=== PATIENT | female | born 1965 | race African-American/Black ===

== ENCOUNTER 2016-04-26 16:20 | Emergency (ER) | payer BC, OTHER ==
--- NOTE | 2016-04-26 16:40 | ER Document Report ---
ED Medical Screen (RME) - General Chief Complaint: Arm Pain Stated Complaint: RIGHT ARMPIT/BREAST PAIN Mode of Arrival: Ambulatory Information source: Patient Notes: Patient complains of pain under right axilla and to right lateral breast area. No history of breast cancer. No fever. He should also reports some blood in her stool that occurred 3-4 weeks ago and has been a day since then. Patient does report a history of hemorrhoids. hx: Diverticulosis I have greeted and performed a rapid initial assessment of this patient. A comprehensive ED assessment and evaluation of the patient, analysis of test results and completion of the medical decision making process will be conducted by additional ED providers. Physical Exam - Vital signs Vitals: Temp Pulse Resp BP Pulse Ox 98.0 F 70 16 166/93 H 98 04/26/16 16:27 04/26/16 16:27 04/26/16 16:27 04/26/16 16:27 04/26/16 16:27 - General General appearance: Appears well, Alert In distress: None Course - Vital Signs Vital signs: Temp Pulse Resp BP Pulse Ox 98.0 F 70 16 166/93 H 98 04/26/16 16:27 04/26/16 16:27 04/26/16 16:27 04/26/16 16:27 04/26/16 16:27
[2016-04-26 17:40] LABS: ABSOLUTE BASOPHILS # (AUTO) 0.1 10^3/uL (0.0-0.2); ABSOLUTE EOSINOPHILS # (AUTO) 0.1 10^3/uL (0.0-0.6); ABSOLUTE LYMPHOCYTES (AUTO) 2.1 10^3/uL (0.5-4.7); ABSOLUTE MONOCYTES (AUTO) 0.2 10^3/uL (0.1-1.4); BASOPHILS % (AUTO) 0.9 % (0-2); EOSINOPHILS % (AUTO) 2.5 % (0-6); HEMATOCRIT 37.1 % (36.0-47.0); HEMOGLOBIN 12.5 g/dL (12.0-15.5); HGB HCT DIFFERENCE 0.4; LYMPHOCYTES % (AUTO) 37.5 % (13-45); MEAN CORPUSCULAR HEMOGLOBIN 29.3 pg (27.0-33.4); MEAN CORPUSCULAR HGB CONC 33.8 g/dL (32.0-36.0); MEAN CORPUSCULAR VOLUME 87 fl (80-97); MONOCYTES % (AUTO) 4.1 % (3-13); RED BLOOD COUNT 4.27 10^6/uL (3.72-5.28); RED CELL DISTRIBUTION WIDTH 12.7 % (11.5-14.0); WHITE BLOOD COUNT 5.5 10^3/uL (4.0-10.5)
[2016-04-26 17:45] LABS: PROTHROMBIN TIME 12.1 SEC (11.4-15.4)
[2016-04-26 17:46] LABS: PARTIAL THROMBOPLASTIN TIME 26.5 SEC (23.5-35.8)
[2016-04-26 18:00] LABS: ALANINE AMINOTRANSFERASE 32 U/L (9-52); ALBUMIN 4.8 g/dL (3.5-5.0); ALKALINE PHOSPHATASE 63 U/L (38-126); ANION GAP 10 (5-19); ASPARTATE AMINO TRANSFERASE 27 U/L (14-36); BILIRUBIN,TOTAL 0.8 mg/dL (0.2-1.3); BLOOD UREA NITROGEN 22 mg/dL (7-20); CALCIUM 9.9 mg/dL (8.4-10.2); CARBON DIOXIDE 29 mmol/L (22-30); CHLORIDE 100 mmol/L (98-107); CREATININE RESULT 0.85 mg/dL (0.52-1.25); GLUCOSE 86 mg/dL (75-110); POTASSIUM 4.1 mmol/L (3.6-5.0); SODIUM 139.1 mmol/L (137-145)
--- NOTE | 2016-04-26 20:27 | ER Document Report ---
HPI - HPI Patient complains to provider of: right axilla swelling and pain Pain Level: 4 Context: Patient is a 51-year-old female presents emergency Department complaining of right axilla swelling, tingling, itching and burning for the past 4-5 days. Patient states that she has had swelling on and off in this area before but never with itching or pain. Patient denies ever having shingles. Patient also complaining of bright red blood per rectum after she has to strain for bowel movements. Patient states that she has a history of constipation and typically has to take [id number] laxatives or milk of magnesia to have a bowel movement. She denies taking a stool softener otherwise she denies any lethargy , dizziness or any other abnormal bleeding. She states it is only occasionally during the week. Otherwise she past medical history significant for external and internal hemorrhoids, diverticulosis and history of colon polyps and a previous breast reduction. - CONSTITUTIONAL Constitutional: DENIES: Fever, Chills - EENT EENT: DENIES: Sore Throat, Ear Pain, Nasal Drainage-Clear, Nasal Drainage- Purulent, Congestion, Eye problems - NEURO Neurology: DENIES: Headache, Weakness, Vision blurred, Dizzinesss / Vertigo - CARDIOVASCULAR Cardiovascular: DENIES: Chest pain - RESPIRATORY Respiratory: DENIES: Trouble Breathing, Coughing - GASTROINTESTINAL Gastrointestinal: DENIES: Abdominal Pain, Nausea, Patient vomiting, Diarrhea, Constipation, Black / Bloody Stools - URINARY Urinary: DENIES: Dysuria, Urgency, Frequency - REPRODUCTIVE Reproductive: DENIES: : - MUSCULOSKELETAL Musculoskeletal: REPORTS: Extremity pain - bilateral underarms. DENIES: Back Pain, Neck Pain, Swelling - DERM Skin Color: Normal, [place] Skin Problems: None - NURSING COMMENTS Comment: Patient presents to ED with complaint of bilateral underarm pain x 4 days. Swelling noted bilaterally. No redness. Pt does c/o tenderness on palpation. Denies fever. Pt also complains of blood in stool x 1 month. Pt does have hx of hemmorhoids. Patient denies rectum pain at this time. Past Medical History - General Information source: Patient - Social History Smoking Status: Never Smoker Cigarette use (# per day): No Chew tobacco use (# tins/day): No Frequency of alcohol use: None Drug Abuse: None Family History: Reviewed & Not Pertinent Patient has suicidal ideation: No Patient has homicidal ideation: No - Past Medical History Cardiac Medical History: Reports: Hx Hypertension Renal/ Medical History: Denies: Hx Peritoneal Dialysis Past Surgical History: Reports: Hx Breast Surgery - breast reduction, Hx Section, Hx Hysterectomy, Hx Orthopedic Surgery - neck Vertical Provider Document - CONSTITUTIONAL Agree With Documented VS: Yes Exam Limitations: No Limitations General Appearance: WD/WN, No Apparent Distress - INFECTION CONTROL TRAVEL OUTSIDE OF THE [place] IN LAST 30 DAYS: No - HEENT HEENT: Atraumatic, Normocephalic - NECK Neck: Normal Inspection. negative: Lymphadenopathy-Left, Lymphadenopathy-Right - RESPIRATORY Respiratory: Breath Sounds Normal, No Respiratory Distress, Chest Non-Tender. negative: Rales, Rhonchi, Wheezing O2 Sat by Pulse Oximetry: 98 - CARDIOVASCULAR Cardiovascular: Regular Rate, Regular Rhythm, No Murmur Pulses: Normal: Radial - GI/ABDOMEN Gastrointestinal: Abdomen Soft, Abdomen Non-Tender, No Organomegaly, Normal Bowel Sounds. negative: Abdominal Guarding, Hepatomegaly, Spleenomegaly Notes: rectail tone intact, no bleeding, no obvious hemorrhoids - DERM Notes: Evidence of right-sided lymphadenopathy in the right axilla that are tender to palpation mobile summer firm posterior enlarged. No evidence of vesicles consistent with shingles. Bilateral breast exams benign no evidence of lumps, abnormal bruising or masses. Course - Re-evaluation Re-evalutation: 04/26/16 22:57 Patient is a 51-year-old female who is emitting into stable, no acute distress and afebrile. Patient had come in complaining of right breast and axilla pain for the past 5 days. Given the unilateral right axillary lymphadenopathy indicated [facility] with [facility]. discussed signs and symptoms to be aware of for signs of shingles. - Vital Signs Vital signs: Temp Pulse Resp BP Pulse Ox 98.0 F 70 16 166/93 H 98 04/26/16 16:27 04/26/16 16:27 04/26/16 16:27 04/26/16 16:27 04/26/16 16:27 - Laboratory Result Diagrams: 04/26/16 17:15 04/26/16 17:15 Laboratory results interpreted by me: 04/26/16 17:15 BUN 22 H Discharge - Discharge Clinical Impression: Lymphadenopathy, Bleeding hemorrhoids Condition: Good Disposition: HOME, SELF-CARE Instructions: Stool Softener ([facility]) Additional Instructions: Hemorrhoids You have hemorrhoids. These are formed by enlargement of veins around the anus. The cause is increased pressure in the veins, from or straining at bowel movements. Hemorrhoids often cause itching and bleeding with bowel movements. When a hemorrhoid becomes clotted, severe pain and swelling result. Soothing creams and suppositories are often prescribed. Warm sitz-baths may also decrease pain, swelling, and itching. Eat a high-fiber diet. Stool softeners such as Metamucil will help. Keep the area very clean. Medicated cleansing pads (such as Tucks) are useful after bowel movements. A hose-mounted shower unit (like a shower massager at low water pressure) can be used to clean around tender hemorrhoid tags. You should call the doctor or return if you develop fever, increasing pain , or an enlarging mass around the anus, or if you simply fail to improve with treatment. Please follow up with your GI doctor for scheduled follow up Right Axilla (Armpit) -This could be the start of herpes zoster (shingles). be aware of small fluid filled bumps in a liner distribution -Your physical exam revealed enlarged lymph nodes in this area. Based on this finding, it is indicated to have you [facility] within the next 1-2 weeks. [facility] [address] [place] [id number] Monday - Monday 8AM - 11:45AM 12:45 PM - 4:30PM Forms: Elevated Blood Pressure, Return to Work
[2016-04-26 21:41] VITALS: BP 161/92
== END 2016-04-26 21:35 | disposition home or self-care (01) ==
LOC: ER 16:20
DX: R59.0 Localized enlarged lymph nodes (principal); K64.9 Unspecified hemorrhoids
CPT/HCPCS: 36415; 80053; 82272; 85025; 85610; 85730; 99283